=== PATIENT | male | born 1980 | race Caucasian/White ===

== ENCOUNTER 2022-09-23 07:45 | Emergency (ER) | payer OTHER ==
[~2022-09-23] VITALS: Ht 193 cm; Wt 90.7 kg
[~2022-09-23 07:45] MED LIST: Norco 5-325 Ta1 EACH PO; ONDA4 PO; Vibramycin100 MG PO
[2022-09-23 10:37] LABS: BASOPHILS ABSOLUTE AUTO 0.07 K/mm3 (0.00-0.23); BASOPHILS PERCENT AUTO 1 % (0-2); EOSINOPHILS ABSOLUTE AUTO 0.12 K/mm3 (0.00-0.68); EOSINOPHILS PERCENT AUTO 1 % (0-6); Hemoglobin 14.6 g/dL (13.5-17.5); IMMATURE GRAN ABSOLUTE AUTO 0.03 K/mm3 (0.00-0.10); IMMATURE GRAN PERCENT AUTO 0 % (0-1); LYMPHOCYTES ABSOLUTE AUTO 1.98 K/mm3 (0.84-5.20); LYMPHOCYTES PERCENT AUTO 17 % (21-46); MONOCYTES ABSOLUTE AUTO 1.05 K/mm3 (0.16-1.47); MONOCYTES PERCENT AUTO 9 % (4-13); Mean Corpuscular HGB 29.9 pg (26.0-34.0); Mean Corpuscular HGB Conc 34.8 g/dL (31.5-36.5); Mean Corpuscular Volume 86 fL (80-100); Mean Platelet Volume 9.4 fL (9.1-12.4); NEUTROPHILS ABSOLUTE AUTO 8.44 K/mm3 (1.96-9.15); NEUTROPHILS PERCENT AUTO 72 % (41-73); Platelet Count 371 K/mm3 (150-400); RDW Coefficient Variation 12.3 % (11.7-14.2); RDW Standard Deviation 38.8 fL (35.1-46.3); Red Blood Cell Count 4.88 M/mm3 (4.30-5.90); White Blood Cell Count 11.69 K/mm3 (4.00-11.30)
[2022-09-23 10:51] LABS: Albumin, Blood 4.2 g/dL (3.4-5.0); Albumin/Globulin Ratio 1.2 (0.8-1.8); Bilirubin, Total 1.5 mg/dL (0.1-1.0); Bun/Creatinine Ratio 24.3 (12.0-20.0); Calcium, Blood 9.1 mg/dL (8.5-10.1); Creatinine, Blood 1.11 mg/dL (0.60-1.20); Globulin, Blood 3.5 g/dL (2.2-4.0); Potassium, Blood 3.9 mmol/L (3.5-5.5); Total Protein, Blood 7.7 g/dL (6.4-8.2)
[2022-09-23] MEDS ORDERED: Prednisone10 MG PO (11:52)
== END 2022-09-23 12:26 | disposition home or self-care (01) ==
LOC: ER 07:45
PROVIDERS: Emergency Medicine
DX: R10.9 Unspecified abdominal pain (principal); D72.829 Elevated white blood cell count, unspecified; F17.210 Nicotine dependence, cigarettes, uncomplicated; Z79.899 Other long term (current) drug therapy; Z88.5 Allergy status to narcotic agent
CPT/HCPCS: 36415; 74177; 80053; 83605; 83690; 85025; 96374; 99284-25; J1885; Q9967

== ENCOUNTER 2023-09-29 14:41 | Emergency (ER) | payer OTHER ==
[~2023-09-29] VITALS: Ht 193 cm; Wt 90.7 kg
[~2023-09-29 14:41] MED LIST changes: +Prednisone10 MG PO
[2023-09-29 16:08] LABS: BASOPHILS ABSOLUTE AUTO 0.03 K/mm3 (0.00-0.23); BASOPHILS PERCENT AUTO 0 % (0-2); EOSINOPHILS ABSOLUTE AUTO 0.03 K/mm3 (0.00-0.68); EOSINOPHILS PERCENT AUTO 0 % (0-6); Hematocrit 38.7 % (37.0-53.0); Hemoglobin 14.2 g/dL (13.5-17.5); IMMATURE GRAN ABSOLUTE AUTO 0.02 K/mm3 (0.00-0.10); IMMATURE GRAN PERCENT AUTO 0 % (0-1); LYMPHOCYTES ABSOLUTE AUTO 1.22 K/mm3 (0.84-5.20); LYMPHOCYTES PERCENT AUTO 12 % (21-46); MONOCYTES PERCENT AUTO 6 % (4-13); Mean Corpuscular HGB 30.7 pg (26.0-34.0); Mean Corpuscular HGB Conc 36.7 g/dL (31.5-36.5); Mean Corpuscular Volume 84 fL (80-100); Mean Platelet Volume 9.1 fL (9.1-12.4); NEUTROPHILS ABSOLUTE AUTO 8.12 K/mm3 (1.96-9.15); NEUTROPHILS PERCENT AUTO 81 % (41-73); Platelet Count 363 K/mm3 (150-400); RDW Coefficient Variation 12.5 % (11.7-14.2); RDW Standard Deviation 37.5 fL (35.1-46.3); Red Blood Cell Count 4.62 M/mm3 (4.30-5.90); White Blood Cell Count 10.02 K/mm3 (4.00-11.30)
[2023-09-29 16:32] LABS: Ethanol (Alcohol), Blood, Med <3 mg/dL; Salicylate <1.7 mg/dL (2.8-20.0)
[2023-09-29 16:36] LABS: Alanine Aminotransfer (ALT/SGP 55 U/L (12-78); Albumin, Blood 4.3 g/dL (3.4-5.0); Albumin/Globulin Ratio 1.3 (0.8-1.8); Alk Phos 61 U/L (50-136); Anion Gap 10 mmol/L (6-16); Aspartate Aminotrans (AST/SGOT 101 U/L (12-37); Bilirubin, Total 1.2 mg/dL (0.1-1.0); Blood Urea Nitrogen 20 mg/dL (8-24); Bun/Creatinine Ratio 16.4 (12.0-20.0); CO2, Blood 24 mmol/L (21-32); Calcium, Blood 9.1 mg/dL (8.5-10.1); Chloride, Blood 106 mmol/L (98-108); Creatinine, Blood 1.22 mg/dL (0.60-1.20); Globulin, Blood 3.2 g/dL (2.2-4.0); Glomerular Filtration Rate 76 (60-); Glucose, Blood 74 mg/dL (70-99); Sodium, Blood 140 mmol/L (136-145); Total Protein, Blood 7.5 g/dL (6.4-8.2)
[2023-09-29 16:37] LABS: Acetaminophen, Random <2.0 ug/mL (10.0-30.0)
[2023-09-29 18:22] VITALS: BP 112/70
== END 2023-09-29 19:22 | disposition home or self-care (01) ==
LOC: ER 14:41
PROVIDERS: Physician Assistant
DX: F15.129 Other stimulant abuse with intoxication, unspecified (principal); E87.6 Hypokalemia; Z88.8 Allergy status to other drugs, medicaments and biological substances; Z88.5 Allergy status to narcotic agent; F17.210 Nicotine dependence, cigarettes, uncomplicated
CPT/HCPCS: 80053; 82947; 83880; 84439; 84443; 84484; 85025; 93005; 93010; 96361; 96365; 96372-59; 96374; 99284-25; G0480; J1200; J2060; J3480; J7030; J7050